=== PATIENT | female | born 1950 ===

== ENCOUNTER 2021-11-22 07:07 | Day surgery (SDC) | payer OTHER | END 2021-11-22 15:00 | disposition home or self-care (01) | LOC: AMB-ENDOS 07:07 | PROVIDERS: ATTEND Surgery | DX: K63.5 Polyp of colon (principal); Z20.822 Contact with and (suspected) exposure to COVID-19; Z86.010 Personal history of colon polyps; E78.5 Hyperlipidemia, unspecified; I10 Essential (primary) hypertension ==